=== PATIENT | female | born 1980 | race Caucasian/White ===

== ENCOUNTER 2017-05-15 12:40 | Emergency (ER) | payer MEDICAID ==
[~2017-05-15] VITALS: Ht 165.1 cm; Wt 100.0 kg
[2017-05-15] MEDS ORDERED: KETOROLAC 60MG/2ML VIAL IM ONE (13:15)
[2017-05-15 13:23] VITALS: BP 132/84
== END 2017-05-15 14:09 | disposition home or self-care (01) ==
LOC: ER 14:04
DX: G89.29 Other chronic pain (principal); M54.5 Low back pain; M79.604 Pain in right leg; F17.200 Nicotine dependence, unspecified, uncomplicated; E05.90 Thyrotoxicosis, unspecified without thyrotoxic crisis or storm
CPT/HCPCS: 81025; 96372; 99283; J1885